=== PATIENT | female | born 1955 | race Caucasian/White ===

== ENCOUNTER → 2017-11-24 | Outpatient (CLI) | payer BC | END | disposition home or self-care (01) | LOC: CDC 15:23 | DX: Z01.810 Encounter for preprocedural cardiovascular examination (principal); D17.1 Benign lipomatous neoplasm of skin and subcutaneous tissue of trunk | CPT/HCPCS: 93000 ==

== ENCOUNTER 2017-12-01 05:28 | Day surgery (SDC) | payer BC ==
[~2017-12-01] VITALS: Ht 160 cm; Wt 70.8 kg
[~2017-12-01 05:28] MED LIST: ATIVAN0.5 MG PO; LEXAPRO20 MG PO; OXYCODONE HCL10 MG PO; TAPAZOLE5 MG PO; TYLENOL EXTRA500 MG PO; VITAMIN D-32000 UNI2 PO; ZESTRIL5 MG PO
[2017-12-01 05:46] VITALS: BP 176/82
[2017-12-01] MEDS ORDERED: ONDANSETRON HCL8 MG PO (09:23)
[2017-12-01] MEDS ORDERED: COLACE100 MG PO (09:23)
[2017-12-01 10:21] VITALS: BP 134/63
[2017-12-01 11:13] VITALS: BP 106/57
== END 2017-12-01 11:20 | disposition home or self-care (01) ==
LOC: SDC
PROC: 0JB70ZZ Excision of Back Subcutaneous Tissue and Fascia, Open Approach (ICD-10-PCS; principal; 2017-12-01)
DX: D17.1 Benign lipomatous neoplasm of skin and subcutaneous tissue of trunk (principal); I10 Essential (primary) hypertension
CPT/HCPCS: 88304; J0690; J1170; J2250; J2405; Q0175; S0020